=== PATIENT | male | born 1940 | race Caucasian/White ===

== ENCOUNTER 2017-01-15 14:30 | Inpatient (IN) | payer MEDICARE ==
[2017-01-15 15:40] LABS: BASOPHILS % (AUTO) 1 % (0-3); EOSINOPHILS % (AUTO) 1 % (0-9); HEMATOCRIT 54 % (39-53); MEAN CORPUSCULAR VOLUME 89 fL (80-100); MONOCYTES % (AUTO) 5.3 % (0-12); NEUTROPHILS % (AUTO) 87.9 % (37-80)
[2017-01-15 16:07] LABS: ALBUMIN 3.7 gm/dl (3.4-5.0); CALCIUM 8.7 mg/dl (8.5-10.1); POTASSIUM 3.8 mMol/L (3.5-5.1); THYROID STIMULATING HORMONE 0.486 uIU/ml (0.358-3.740)
[2017-01-15] MEDS ORDERED: SODIUM CHLORIDE 0.9% 1000ML 1,000 ML IV ONE (16:32)
[2017-01-15] MEDS ORDERED: SOLUMEDROL 125 MG/2 ML 125 MG/2 ML PDS IV ONE (16:45)
[2017-01-15] MEDS ORDERED: ALBUTEROL/IPRATROPIUM 1 VIAL SOL INH ONE (16:45)
[2017-01-15] MEDS ORDERED: CEFTRIAXONE 1 GM PDS 1 GM in SODIUM CHLORIDE 0.9% 100 ML 100 ML IV SCH (16:45)
[2017-01-15] MEDS ORDERED: AZITHROMYCIN 250 MG TAB PO ONE (16:47)
[2017-01-15] MEDS ORDERED: CEFTRIAXONE 1 GM PDS ONE (16:54)
[2017-01-15] MEDS ORDERED: SOLUMEDROL 125 MG/2 ML 125 MG/2 ML PDS ONE (16:54)
[2017-01-15] MEDS ORDERED: ALBUTEROL/IPRATROPIUM 1 VIAL SOL ONE (16:55)
[2017-01-15] MEDS ORDERED: AZITHROMYCIN 250 MG TAB ONE (17:15)
[2017-01-15] MEDS: LATANOPROST 0.005% SOL OP SCH (20:45)
[2017-01-15] MEDS: ENOXAPARIN 40 MG SOL SC SCH (20:45)
[2017-01-15] MEDS: DEXTROSE/SALINE 0.45/KCL 20MEQ 1,000 ML/1,000 ML SOL IV SCH (21:20)
[2017-01-15] MEDS: ALBUTEROL/IPRATROPIUM 1 VIAL SOL INH SCH (22:00)
[2017-01-16] MEDS: SOLUMEDROL 125 MG/2 ML 125 MG/2 ML PDS IV SCH ×3 (00:50→17:05)
[2017-01-16] MEDS: ALBUTEROL/IPRATROPIUM 1 VIAL SOL INH SCH ×4 (04:14→21:00)
[2017-01-16 07:25] LABS: APPEARANCE,URINE Clear; BILIRUBIN,URINE NEGATIVE (NEGATIVE); COLOR,URINE Yellow; GLUCOSE, URINE (UA) 2+ (NEGATIVE); KETONES,URINE NEGATIVE (NEGATIVE); LEUKOCYTE ESTERASE ,URINE NEGATIVE (NEGATIVE); NITRATE,URINE NEGATIVE (NEGATIVE); OCCULT BLOOD,URINE TRACE LYSED (NEG-TRACE); PH,URINE 5.5; UROBILINOGEN,URINE 0.2 (0.2-1.0 EU)
[2017-01-16 07:29] LABS: CALCIUM 8.2 mg/dl (8.5-10.1); POTASSIUM 3.5 mMol/L (3.5-5.1)
[2017-01-16] MEDS: DEXTROSE/SALINE 0.45/KCL 20MEQ 1,000 ML/1,000 ML SOL IV SCH (07:33)
[2017-01-16 07:35] LABS: BASOPHILS % (AUTO) 0 % (0-3); EOSINOPHILS % (AUTO) 0 % (0-9); HEMATOCRIT 45 % (39-53); MEAN CORPUSCULAR HGB CONC 33.6 gm/dl (32.0-36.0); MEAN CORPUSCULAR VOLUME 89 fL (80-100); MONOCYTES % (AUTO) 0.6 % (0-12); NEUTROPHILS % (AUTO) 95.9 % (37-80)
[2017-01-16 08:35] LABS: RBC,URINE 0-1 (0-3AV/HPF)
[2017-01-16 09:37] LABS: HEMOGLOBIN A1C 5.4 % (4.8-6.0)
[2017-01-16] MEDS: LISINOPRIL 5 MG TAB PO SCH (09:44)
[2017-01-16] MEDS: PILOCARPINE OP SCH ×3 (09:55→20:45)
[2017-01-16] MEDS: CEFTRIAXONE 1 GM (PREMIX) 1 GM/50 ML SOL IV SCH (09:55)
[2017-01-16] MEDS ORDERED: ACETAMINOPHEN 500 MG 500 MG TAB PO PRN (15:38)
[2017-01-16] MEDS: AZITHROMYCIN 250 MG TAB PO SCH (17:05)
[2017-01-16] MEDS: ENOXAPARIN 40 MG SOL SC SCH (20:44)
[2017-01-16] MEDS: LATANOPROST 0.005% SOL OP SCH (20:45)
[2017-01-17] MEDS: SOLUMEDROL 125 MG/2 ML 125 MG/2 ML PDS IV SCH ×3 (00:18→20:14)
[2017-01-17] MEDS: ALBUTEROL/IPRATROPIUM 1 VIAL SOL INH SCH ×4 (04:22→21:52)
[2017-01-17] MEDS: PILOCARPINE OP SCH ×2 (09:02→20:09)
[2017-01-17] MEDS: CEFTRIAXONE 1 GM (PREMIX) 1 GM/50 ML SOL IV SCH (09:02)
[2017-01-17] MEDS: LISINOPRIL 5 MG TAB PO SCH (09:07)
[2017-01-17] MEDS: SODIUM CHLORIDE 0.9% FLUSH 10 ML SOL IV SCH ×3 (09:12→20:11)
[2017-01-17] MEDS: CARBIDOPA/LEVODOPA 25/100 TAB PO SCH ×2 (15:04→20:10)
[2017-01-17] MEDS: AZITHROMYCIN 250 MG TAB PO SCH (16:54)
[2017-01-17] MEDS: ENOXAPARIN 40 MG SOL SC SCH (19:17)
[2017-01-17] MEDS: LATANOPROST 0.005% SOL OP SCH (20:10)
[2017-01-17] MEDS: DOCUSATE SODIUM 100 MG SGL PO SCH (20:11)
[2017-01-18] MEDS: SODIUM CHLORIDE 0.9% FLUSH 10 ML SOL IV SCH ×2 (01:25→08:40)
[2017-01-18] MEDS: ALBUTEROL/IPRATROPIUM 1 VIAL SOL INH SCH ×5 (02:58→21:03)
[2017-01-18] MEDS: CARBIDOPA/LEVODOPA 25/100 TAB PO SCH ×3 (08:39→20:48)
[2017-01-18] MEDS: DOCUSATE SODIUM 100 MG SGL PO SCH ×2 (08:39→20:48)
[2017-01-18] MEDS: PILOCARPINE OP SCH ×2 (08:39→20:47)
[2017-01-18] MEDS: LISINOPRIL 5 MG TAB PO SCH (08:40)
[2017-01-18] MEDS: SOLUMEDROL 125 MG/2 ML 125 MG/2 ML PDS IV SCH (08:44)
[2017-01-18] MEDS ORDERED: PREDNISONE 20 MG TAB PO SCH (09:37)
[2017-01-18] MEDS: AZITHROMYCIN 250 MG TAB PO SCH (16:00)
[2017-01-18] MEDS: LATANOPROST 0.005% SOL OP SCH (20:48)
[2017-01-19 03:00] VITALS: RESP 16
[2017-01-19] MEDS: ALBUTEROL/IPRATROPIUM 1 VIAL SOL INH SCH ×3 (03:00→16:22)
[2017-01-19 08:01] VITALS: BP 172/96; TEMP 97.3
[2017-01-19] MEDS: PILOCARPINE OP SCH (08:53)
[2017-01-19] MEDS: CARBIDOPA/LEVODOPA 25/100 TAB PO SCH ×2 (08:53→15:24)
[2017-01-19] MEDS: DOCUSATE SODIUM 100 MG SGL PO SCH (08:54)
[2017-01-19] MEDS: LISINOPRIL 5 MG TAB PO SCH (08:57)
[2017-01-19] MEDS ORDERED: PREDNISONE 20 MG TAB PO SCH (09:00)
[2017-01-19 09:35] VITALS: PULSE 75; O2SAT 99
== END 2017-01-19 16:00 | DRG 194 ==
LOC: ED 14:30 → UNDOADMIN 17:15 → ACUTE CARE 17:15
PROVIDERS: ADMIT Emergency Medicine; ATTEND Emergency Medicine
PROC: F01ZDFZ Gait and/or Balance Assessment using Assistive, Adaptive, Supportive or Protective Equipment (ICD-10-PCS; principal; 2017-01-16)
PROC: F01ZBZZ Bed Mobility Assessment (ICD-10-PCS; 2017-01-16)
PROC: F01ZCZZ Transfer Assessment (ICD-10-PCS; 2017-01-16)
PROC: F02Z1ZZ Dressing Assessment (ICD-10-PCS; 2017-01-16)
PROC: F02Z0ZZ Bathing/Showering Assessment (ICD-10-PCS; 2017-01-16)
PROC: F02Z3ZZ Grooming/Personal Hygiene Assessment (ICD-10-PCS; 2017-01-16)
DX: J18.9 Pneumonia, unspecified organism (principal); J21.9 Acute bronchiolitis, unspecified; N17.9 Acute kidney failure, unspecified; A09 Infectious gastroenteritis and colitis, unspecified; R21 Rash and other nonspecific skin eruption; G20 Parkinson's disease; J44.9 Chronic obstructive pulmonary disease, unspecified; R41.89 Other symptoms and signs involving cognitive functions and awareness; R53.1 Weakness; E86.0 Dehydration; Z91.89 Other specified personal risk factors, not elsewhere classified; H40.9 Unspecified glaucoma; H26.9 Unspecified cataract; R73.9 Hyperglycemia, unspecified; R13.10 Dysphagia, unspecified
CPT/HCPCS: 36415; 71020; 80048; 80053; 81001; 83036; 83880; 84443; 85025; 93005; 94150; 94640; 94664; 96365; 96374; 99070; 99285; J0696; J1650; J2930; J7620

== ENCOUNTER 2017-03-31 23:25 | Inpatient (IN) | payer MEDICARE ==
[2017-03-31] MEDS ORDERED: SODIUM CHLORIDE 0.9% 1000ML 1,000 ML IV ONE (23:45)
[2017-03-31] MEDS ORDERED: VANCOMYCIN HCL 500 MG PDS 1,000 MG in SODIUM CHLORIDE 0.9% 250 ML 250 ML IV ONE (23:48)
[2017-03-31] MEDS ORDERED: SODIUM CHLORIDE 0.9% 50 ML 25 ML IV PRN (23:48)
[2017-03-31] MEDS ORDERED: PIPERACILLIN/TAZOBACT 3.375 GM 3.375 GM in SODIUM CHLORIDE 0.9% 100 ML 100 ML IV ONE (23:48)
[2017-04-01 00:04] LABS: HEMATOCRIT 44 % (39-53); MEAN CORPUSCULAR HGB CONC 32.9 gm/dl (32.0-36.0); MEAN CORPUSCULAR VOLUME 84 fL (80-100)
[2017-04-01] MEDS ORDERED: PIPERACILLIN/TAZOBACT 3.375 GM PDS IV ONE ×6 (00:06→23:38)
[2017-04-01] MEDS ORDERED: WATER, STERILE 20 ML 20 ML ONE (00:06)
[2017-04-01 00:25] LABS: APPEARANCE,URINE Clear; BILIRUBIN,URINE NEGATIVE (NEGATIVE); COLOR,URINE Yellow; GLUCOSE, URINE (UA) NEGATIVE (NEGATIVE); KETONES,URINE TRACE (NEGATIVE); LEUKOCYTE ESTERASE ,URINE NEGATIVE (NEGATIVE); NITRATE,URINE NEGATIVE (NEGATIVE); OCCULT BLOOD,URINE TRACE LYSED (NEG-TRACE); UROBILINOGEN,URINE 0.2 (0.2-1.0 EU)
[2017-04-01 00:26] LABS: ALBUMIN 3.1 gm/dl (3.4-5.0); ALT 11 IU/L (14-63); CALCIUM 8.5 mg/dl (8.5-10.1); GLOM FILT RATE 60 mL/min (>60); POTASSIUM 3.7 mMol/L (3.5-5.1); SODIUM 137 mMol/L (136-145)
[2017-04-01 00:33] LABS: RBC,URINE 0-2 (0-3AV/HPF); WBC,URINE 0-2 (0-5AV/HPF)
[2017-04-01 00:45] LABS: BASOPHILS % (MANUAL) 0 % (0-3); EOSINOPHILS % (MANUAL) 1 % (0-9); LYMPHOCYTES % (MANUAL) 7 % (10-50); NORMAL RBCS PRESENT
[2017-04-01] MEDS ORDERED: VANCOMYCIN HYDROCHLORIDE 500 MG PDS IV ONE (00:46)
[2017-04-01] MEDS ORDERED: ACETAMINOPHEN 325 MG PO PRN (00:50)
[2017-04-01] MEDS ORDERED: SODIUM CHLORIDE 0.9% 1000ML 1,000 ML IV ONE (00:51)
[2017-04-01] MEDS: SODIUM CHLORIDE 0.9% FLUSH 10 ML SOL IV SCH ×3 (01:30→16:32)
[2017-04-01] MEDS ORDERED: SODIUM CHLORIDE 0.9% 100 ML 100 ML IV ONE ×5 (04:53→23:39)
[2017-04-01] MEDS: PIPERACILLIN/TAZOBACT 3.375 GM 3.375 GM in SODIUM CHLORIDE 0.9% 100 ML 100 ML IV SCH ×3 (05:55→17:56)
[2017-04-01] MEDS: DEXTROSE/SALINE 0.45/KCL 20MEQ 1,000 ML/1,000 ML SOL IV SCH ×3 (09:36→20:54)
[2017-04-01] MEDS: ENOXAPARIN 40 MG SOL SC SCH (09:37)
[2017-04-01] MEDS: CARBIDOPA/LEVODOPA 25/250 TAB PO SCH ×2 (11:55→16:26)
[2017-04-01] MEDS ORDERED: VANCOMYCIN HCL 500 MG PDS 1,000 MG in SODIUM CHLORIDE 0.9% 250 ML 250 ML IV SCH (13:00)
[2017-04-01] MEDS: ALBUTEROL/IPRATROPIUM 1 VIAL SOL INH PRN (16:26)
[2017-04-02] MEDS: PIPERACILLIN/TAZOBACT 3.375 GM 3.375 GM in SODIUM CHLORIDE 0.9% 100 ML 100 ML IV SCH ×5 (00:10→23:47)
[2017-04-02] MEDS: SODIUM CHLORIDE 0.9% FLUSH 10 ML SOL IV SCH ×6 (02:09→23:47)
[2017-04-02 07:04] LABS: POTASSIUM 3.8 mMol/L (3.5-5.1)
[2017-04-02 07:13] LABS: BASOPHILS % (AUTO) 1 % (0-3); EOSINOPHILS % (AUTO) 4 % (0-9); HEMATOCRIT 33 % (39-53); MEAN CORPUSCULAR HGB CONC 34.1 gm/dl (32.0-36.0); MEAN CORPUSCULAR VOLUME 85 fL (80-100); NEUTROPHILS % (AUTO) 77.9 % (37-80)
[2017-04-02] MEDS: CARBIDOPA/LEVODOPA 25/250 TAB PO SCH ×3 (08:27→15:57)
[2017-04-02] MEDS: ENOXAPARIN 40 MG SOL SC SCH (09:44)
[2017-04-02] MEDS ORDERED: PIPERACILLIN/TAZOBACT 3.375 GM PDS IV ONE ×3 (12:10→23:36)
[2017-04-02] MEDS ORDERED: SODIUM CHLORIDE 0.9% 100 ML 100 ML IV ONE ×3 (12:10→23:37)
[2017-04-02] MEDS: DEXTROSE/SALINE 0.45/KCL 20MEQ 1,000 ML/1,000 ML SOL IV SCH (14:53)
[2017-04-02] MEDS: ALBUTEROL/IPRATROPIUM 1 VIAL SOL INH PRN (20:37)
[2017-04-03] MEDS: SODIUM CHLORIDE 0.9% FLUSH 10 ML SOL IV SCH ×6 (05:35→17:15)
[2017-04-03] MEDS ORDERED: PIPERACILLIN/TAZOBACT 3.375 GM PDS IV ONE ×4 (05:37→23:25)
[2017-04-03] MEDS ORDERED: SODIUM CHLORIDE 0.9% 100 ML 100 ML IV ONE ×3 (05:37→23:25)
[2017-04-03] MEDS: PIPERACILLIN/TAZOBACT 3.375 GM 3.375 GM in SODIUM CHLORIDE 0.9% 100 ML 100 ML IV SCH ×4 (05:58→23:54)
[2017-04-03 07:16] LABS: CALCIUM 8.4 mg/dl (8.5-10.1); POTASSIUM 3.8 mMol/L (3.5-5.1)
[2017-04-03 07:17] LABS: BASOPHILS % (AUTO) 1 % (0-3); EOSINOPHILS % (AUTO) 5 % (0-9); HEMATOCRIT 36 % (39-53); MEAN CORPUSCULAR HGB CONC 34.7 gm/dl (32.0-36.0); MEAN CORPUSCULAR VOLUME 85 fL (80-100); NEUTROPHILS % (AUTO) 72.4 % (37-80)
[2017-04-03] MEDS: CARBIDOPA/LEVODOPA 25/250 TAB PO SCH ×3 (09:48→15:45)
[2017-04-04] MEDS: SODIUM CHLORIDE 0.9% FLUSH 10 ML SOL IV SCH ×2 (00:30→10:18)
[2017-04-04] MEDS ORDERED: SODIUM CHLORIDE 0.9% 100 ML 100 ML IV ONE (04:55)
[2017-04-04] MEDS ORDERED: PIPERACILLIN/TAZOBACT 3.375 GM PDS IV ONE (04:55)
[2017-04-04] MEDS: PIPERACILLIN/TAZOBACT 3.375 GM 3.375 GM in SODIUM CHLORIDE 0.9% 100 ML 100 ML IV SCH ×2 (05:57→12:12)
[2017-04-04 07:41] VITALS: BP 148/88; PULSE 64; RESP 24; TEMP 97; O2SAT 92
[2017-04-04] MEDS: CARBIDOPA/LEVODOPA 25/250 TAB PO SCH ×2 (08:49→12:12)
[2017-04-04] MEDS ORDERED: PNEUMOC 13-VAL CONJ-DIP CRM/PF 0.5 ML SYRINGE IM ONE (09:53)
== END 2017-04-04 12:00 | DRG 871 ==
LOC: ED 23:25 → ACUTE CARE 04-01 00:44
PROVIDERS: ADMIT Surgery; ATTEND Family Medicine
DX: A41.9 Sepsis, unspecified organism (principal); J69.0 Pneumonitis due to inhalation of food and vomit; R65.21 Severe sepsis with septic shock; G20 Parkinson's disease
CPT/HCPCS: 36415; 71010; 80048; 80053; 81001; 83880; 84484; 85007; 85025; 85027; 85651; 87040; 87077; 87186; 90670; 94640; 96365; 99070; 99238; 99285; 99291; J1650; J2543; J3370; J7620; A6232; G0008